=== PATIENT | female | born 1980 | race Caucasian/White ===

== ENCOUNTER → 2018-09-25 | Outpatient (CLI) | payer OTHER | END | disposition home or self-care (01) | LOC: LABWHC1 13:33 | PROVIDERS: ATTEND Internal Medicine Endocrinology, Diabetes & Metabolism | DX: E03.8 Other specified hypothyroidism (principal) | CPT/HCPCS: 36415; 84443; 86376 ==

== ENCOUNTER → 2019-02-14 | Outpatient (CLI) | payer OTHER | LOC: LABWHC1 13:55 | PROVIDERS: ATTEND Internal Medicine Endocrinology, Diabetes & Metabolism | DX: E03.8 Other specified hypothyroidism (principal) | CPT/HCPCS: 36415; 84443 ==

== ENCOUNTER → 2021-01-27 | Outpatient (CLI) | payer OTHER ==
--- NOTE | 2021-01-27 13:58 | CONS ---
CONSULTATION DATE OF SERVICE: 01/27/2021. This 40-year-old lady has been evaluated in [facility] Center for possible obstructive sleep apnea-hypopnea syndrome. HISTORY OF PRESENT ILLNESS/SLEEP-WAKE EVALUATION: Patient usual sleep schedule from 9 or 10 p.m. until 6:30 or 7 a.m. The patient does have problems with falling asleep now after she had COVID-19 in October of 2020. No TV in bedroom. She usually sleeps on the side position. She wakes up from sleep with nocturia. She has loud snoring. In the morning, patient wakes up tired has difficulties paying attention, worry about her sleep, has problem with memory, concentration, depression. [place] Sleepiness Scale is 5. In the morning, patient has headaches. Recently, she may have headaches for the whole days again after having COVID-19. PAST MEDICAL HISTORY: Positive for Kandi's thyroiditis, asthma of physical exercise. PAST SURGICAL HISTORY: Breast reduction in 2005, tubal ligation 2012. MEDICATIONS: Ambien 10 mg on as needed basis at bedtime, Celexa 10 mg once a day, Albuterol inhaler on p.r.n. basis, Tylenol as needed, thyroid support and immune support. FAMILY HISTORY: Positive for hypertension, heart problems, asthma, diabetes. REVIEW OF SYSTEMS: Loud snoring, awakenings from sleep, difficulties to initiate sleep, headaches. PHYSICAL EXAMINATION: GENERAL: lady without distress. VITAL SIGNS: BP 124/80, HR 84, RR 15, height 5 feet, weight 183.8, BMI 32.7, temperature 97.8, oxygen saturation at room air 97%. HEENT: PERRLA, EOMI. Oropharynx extremely low position of soft palate. Mallampati 4. NECK: 16 inches in circumference. LUNGS: Clear to percussion and to auscultation. Good air exchange. No wheezing or rhonchi. HEART: S1, S2 regular. No murmurs, gallops, or rubs. ABDOMEN: Soft and nontender. Bowel sounds are present. No organomegaly appreciated. EXTREMITIES: No clubbing or cyanosis. LIVESTOCK BROKER: Awake, alert, and oriented X3. Cranial nerves 2 to 7 intact. There is no fasciculation or atrophy. noted. No focal deficits observed. IMPRESSION: 1. Loud snoring, awakenings from sleep, extremely low position of soft palate, a wide neck, obesity, obstructive sleep apnea-hypopnea syndrome. 2. Mild obesity, body mass index 32.7. 3. Status post COVID-19 in October of 2020. 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 4. Difficulties to initiate sleep, insomnia. 5. History of Kandi's thyroiditis. 6. Asthma on physical exercise. 7. Status post tubal ligation. 8. Status post breast reduction. PLAN: 1. Polysomnography for evaluation of patient's breathing during sleep. 2. CPAP/BiPAP titration if sleep study confirms obstructive sleep apnea-hypopnea syndrome. 3. Preferable position during sleep on the side. 4. No driving if patient feels any sleepiness. 5. I will see patient for follow up visit to explain results of testing and following plan. Thank you very much for referring this patient for evaluation. Sincerely, Victor Hugo Pérez MD, PhD, FAASM Diplomat of [place] [employer] [place] [employer] [facility] [place] MMODL / IJN: [id number] /
== END | disposition home or self-care (01) ==
LOC: SLEEP 11:40
PROVIDERS: ATTEND Internal Medicine
DX: G47.33 Obstructive sleep apnea (adult) (pediatric) (principal); E66.9 Obesity, unspecified; Z68.32 Body mass index [BMI] 32.0-32.9, adult; Z86.16 Personal history of COVID-19; Z79.899 Other long term (current) drug therapy; Z86.39 Personal history of other endocrine, nutritional and metabolic disease; Z98.890 Other specified postprocedural states; Z98.51 Tubal ligation status
CPT/HCPCS: 99211

== ENCOUNTER 2021-03-11 15:36 | Emergency (ER) | payer OTHER ==
[2021-03-11] MEDS ORDERED: SODIUM CHLORIDE 0.9% 1,000 ML IV ONE (16:23)
[2021-03-11] MEDS ORDERED: MORPHINE SULFATE 4 MG/ML SYRINGE IVP STA (16:23)
--- NOTE | 2021-03-11 16:26 | ED ---
Abdominal Pain HPI - General Chief Complaint: Abdominal Pain Stated Complaint: ABD pain Time Seen by Provider: 03/11/21 16:14 Source: patient Mode of arrival: ambulatory Limitations: no limitations - History of Present Illness Initial Comments: Is a 40-year-old female with a history of tubal ligation and hypothyroidism who presents emergency department for left pelvic pain. She states the symptoms started 2 days ago and have gradually worsened. She states that they're constant nature however made worse with palpation and coughing, laughing, or bumps in the car. She states that she just recently got off of her menstrual cycle which she states was normal. She denies any vaginal discharge. No fevers or chills. She does admit to a little bit of nausea that she attributes to the pain however no vomiting. No constipation or diarrhea. No dysuria or hematuria. No flank pain. She states that she does have a history of ovarian cyst about 10 years ago. She went to [facility] who performed a urinalysis that showed a moderate to large amount of blood however no infection. Up her dependency test was not obtained time. - Related Data Home Medications Medication Instructions Recorded Confirmed Ascorbic Acid [Vitamin C] 500 mg PO DAILY 03/11/21 03/11/21 Cholecalciferol [Vitamin D3 (25 25 mcg PO DAILY 03/11/21 03/11/21 Mcg = 1000 Iu)] Levothyroxine Sodium [Synthroid] 75 mcg PO DAILY 03/11/21 03/11/21 Vitamin B Complex 1 cap PO DAILY 03/11/21 03/11/21 Zolpidem [Ambien] 10 mg PO HS PRN 03/11/21 03/11/21 Previous Rx's Medication Instructions Recorded Amoxicillin/Potassium Clav 1 tab PO Q12HR 1 Days #10 tab 03/11/21 [Augmentin 875-125 Tablet] Allergies Allergy/AdvReac Type Severity Reaction Status Date / Time No Known Allergies Allergy Verified 03/11/21 17:45 Review of Systems ROS Statement: Those systems with pertinent positive or pertinent negative responses have been documented in the HPI. ROS Other: All systems not noted in ROS Statement are negative. Past Medical History Past Medical History: No Reported History History of Any Multi-Drug Resistant Organisms: None Reported Past Surgical History: Tubal Ligation Additional Past Surgical History / Comment(s): breast augmentation, tubal ligation Smoking Status: Current some day smoker Past Alcohol Use History: Occasional Past Drug Use History: None Reported General Exam - General Exam Comments Initial Comments: Constitutional: Awake alert appears uncomfortable Head: Normocephalic atraumatic Eyes: no conjunctival injection No scleral icterus EOMI Neck: No JVD Supple Heart: Regular rate rhythm normal S1-S2 no murmurs Lungs: Clear to auscultation bilaterally No wheezing No rales Abdomen: Soft nondistended is tenderness to the left pelvic region with rebound and mild guarding Extremities: Non edematous DP pulses intact Radial pulses intact Neuro: A&Ox3 No focal neurologic deficits Psych: Appropriate mood and affect Limitations: no limitations Course Vital Signs 03/11/21 03/11/21 03/11/21 15:52 17:00 19:46 Temperature 98.2 F 99.2 F Pulse Rate 90 84 85 Respiratory 16 18 16 Rate Blood Pressure 127/82 112/76 124/84 O2 Sat by Pulse 100 99 98 Oximetry Medical Decision Making - Medical Decision Making Is a 40-year-old female presents emergency department for left lower quadrant abdominal pain. Initially this seemed to be more pelvic in origin however ultrasound of pelvis did not reveal any acute abdomen. Computed tomography scan did reveal what appears to be uncomplicated diverticulitis. The patient's pain was well managed in the emergency department with medications. Blood work was unremarkable. The patient was started on Augmentin to take for the next 5 days. Told to return if she has any worsening or changing symptoms. All questions answered. - Lab Data Result diagrams: 03/11/21 17:00 03/11/21 17:00 Lab Results 03/11/21 03/11/21 03/11/21 Range/Units 17:00 17:00 17:00 WBC 12.0 H (3.8-10.6) k/uL RBC 4.38 (3.80-5.40) m/uL Hgb 13.6 (11.4-16.0) gm/dL Hct 40.2 (34.0-46.0) % MCV 91.8 (80.0-100.0) fL MCH 30.9 (25.0-35.0) pg MCHC 33.7 (31.0-37.0) g/dL RDW 12.6 (11.5-15.5) % Plt Count 266 (150-450) k/uL MPV 7.0 Neutrophils % 78 % Lymphocytes % 15 % Monocytes % 5 % Eosinophils % 1 % Basophils % 0 % Neutrophils # 9.3 H (1.3-7.7) k/uL Lymphocytes # 1.8 (1.0-4.8) k/uL Monocytes # 0.5 (0-1.0) k/uL Eosinophils # 0.1 (0-0.7) k/uL Basophils # 0.0 (0-0.2) k/uL Sodium (137-145) mmol/L Potassium (3.5-5.1) mmol/L Chloride (98-107) mmol/L Carbon Dioxide (22-30) mmol/L Anion Gap mmol/L BUN (7-17) mg/dL Creatinine (0.52-1.04) mg/dL Est GFR (CKD-EPI)AfAm (>60 ml/min/1.73 sqM) Est GFR (CKD-EPI)NonAf (>60 ml/min/1.73 sqM) Glucose (74-99) mg/dL Calcium (8.4-10.2) mg/dL Total Bilirubin (0.2-1.3) mg/dL AST (14-36) U/L ALT (4-34) U/L Alkaline Phosphatase (38-126) U/L Total Protein (6.3-8.2) g/dL Albumin (3.5-5.0) g/dL Urine Color Light Yellow Urine Appearance Cloudy H (Clear) Urine pH 5.0 (5.0-8.0) Ur Specific [place] 1.008 (1.001-1.035) Urine Protein Negative (Negative) Urine Glucose (UA) Negative (Negative) Urine Ketones Trace H (Negative) Urine Blood Small H (Negative) Urine Nitrite Negative (Negative) Urine Bilirubin Negative (Negative) Urine Urobilinogen <2.0 (<2.0) mg/dL Ur Leukocyte Esterase Negative (Negative) Urine RBC 1 (0-5) /hpf Urine WBC 2 (0-5) /hpf Ur Squamous Epith Cells 7 H (0-4) /hpf Amorphous Sediment Occasional H (None) /hpf Urine Bacteria Rare H (None) /hpf Urine Mucus Rare H (None) /hpf Urine HCG, Qual Not Detected (Not Detectd) 03/11/21 Range/Units 17:00 WBC (3.8-10.6) k/uL RBC (3.80-5.40) m/uL Hgb (11.4-16.0) gm/dL Hct (34.0-46.0) % MCV (80.0-100.0) fL MCH (25.0-35.0) pg MCHC (31.0-37.0) g/dL RDW (11.5-15.5) % Plt Count (150-450) k/uL MPV Neutrophils % % Lymphocytes % % Monocytes % % Eosinophils % % Basophils % % Neutrophils # (1.3-7.7) k/uL Lymphocytes # (1.0-4.8) k/uL Monocytes # (0-1.0) k/uL Eosinophils # (0-0.7) k/uL Basophils # (0-0.2) k/uL Sodium 136 L (137-145) mmol/L Potassium 4.0 (3.5-5.1) mmol/L Chloride 105 (98-107) mmol/L Carbon Dioxide 21 L (22-30) mmol/L Anion Gap 10 mmol/L BUN 14 (7-17) mg/dL Creatinine 1.01 (0.52-1.04) mg/dL Est GFR (CKD-EPI)AfAm 81 (>60 ml/min/1.73 sqM) Est GFR (CKD-EPI)NonAf 70 (>60 ml/min/1.73 sqM) Glucose 91 (74-99) mg/dL Calcium 9.5 (8.4-10.2) mg/dL Total Bilirubin 0.9 (0.2-1.3) mg/dL AST 21 (14-36) U/L ALT 15 (4-34) U/L Alkaline Phosphatase 67 (38-126) U/L Total Protein 7.5 (6.3-8.2) g/dL Albumin 4.5 (3.5-5.0) g/dL Urine Color Urine Appearance (Clear) Urine pH (5.0-8.0) Ur Specific [place] (1.001-1.035) Urine Protein (Negative) Urine Glucose (UA) (Negative) Urine Ketones (Negative) Urine Blood (Negative) Urine Nitrite (Negative) Urine Bilirubin (Negative) Urine Urobilinogen (<2.0) mg/dL Ur Leukocyte Esterase (Negative) Urine RBC (0-5) /hpf Urine WBC (0-5) /hpf Ur Squamous Epith Cells (0-4) /hpf Amorphous Sediment (None) /hpf Urine Bacteria (None) /hpf Urine Mucus (None) /hpf Urine HCG, Qual (Not Detectd) Disposition Clinical Impression: Diverticulitis Disposition: HOME SELF-CARE Condition: Stable Instructions (If sedation given, give patient instructions): Diverticulitis (ED) Prescriptions: Amoxicillin/Potassium Clav [Augmentin 875-125 Tablet] 1 tab PO Q12HR 1 Days #10 tab Is patient prescribed a controlled substance at d/c from ED?: No Referrals: Sarah Harp MD [Primary Care Provider] - 1-2 days
[2021-03-11 17:24] LABS: Albumin 4.5 g/dL (3.5-5.0); Calcium 9.5 mg/dL (8.4-10.2); Total Bilirubin 0.9 mg/dL (0.2-1.3); Total Protein 7.5 g/dL (6.3-8.2)
[2021-03-11 17:27] LABS: Basophils % (A) 0 %; Eosinophils # (A) 0.1 k/uL (0-0.7); Eosinophils % (A) 1 %; HCT 40.2 % (34.0-46.0); HGB 13.6 gm/dL (11.4-16.0); Lymphocytes # (A) 1.8 k/uL (1.0-4.8); Lymphocytes % (A) 15 %; MCH 30.9 pg (25.0-35.0); MCHC 33.7 g/dL (31.0-37.0); MCV 91.8 fL (80.0-100.0); Monocytes # (A) 0.5 k/uL (0-1.0); Monocytes % (A) 5 %; Neutrophils # (A) 9.3 k/uL (1.3-7.7); Neutrophils % (A) 78 %; Platelet Count 266 k/uL (150-450); RBC 4.38 m/uL (3.80-5.40); RDW 12.6 % (11.5-15.5)
[2021-03-11 17:29] LABS: Amorphous Sediment,Urine Occasional /hpf; Appearance,Urine Cloudy (Clear); Bacteria,Urine Rare /hpf; Bilirubin,Urine Negative (Negative); Blood,Urine Small (Negative); Color,Urine Light Yellow; Glucose,Urine (UA) Negative (Negative); Ketones,Urine Trace (Negative); Leukocyte Esterase,Urine Negative (Negative); Mucus,Urine Rare /hpf; Nitrite,Urine Negative (Negative); Protein,Urine Negative (Negative); RBC,Urine 1 /hpf (0-5); Specific Gravity,Urine 1.008 (1.001-1.035); Squamous Epithelial Cell,Urine 7 /hpf (0-4); Urobilinogen,Urine <2.0 mg/dL (<2.0); WBC,Urine 2 /hpf (0-5)
--- NOTE | 2021-03-11 18:47 | US ---
EXAMINATION TYPE: US transvaginal DATE OF EXAM: 03/11/2021 COMPARISON: NONE CLINICAL HISTORY: L pelvic pain x 3 days. Hx tubal ligation, 1 miscarriage. A1. TECHNIQUE: Transvaginal (TV). Date of LMP: 03/07/2021 EXAM MEASUREMENTS: Uterus: 10.1 x 6.2 x 6.2 cm Endometrial Stripe: 0.42 cm Right Ovary: 3.6 x 2.4 x 2.2 cm Left Ovary: 3.7 x 2.3 x 2.8 cm 1. Uterus: Anteverted. Measures upper limits of normal. Measurement slightly limited. Heterogeneou s area of mixed echogenicity seen posteriorly measuring approximately 3.9 x 3.4 x 3.0 cm, most consis tent with myometrial leiomyoma. 2. Endometrium: Appears to be wnl. 3. Right Ovary: Positioned posterior to the uterus. Anechoic areas seen, largest measures: 1.2 x 1.2 x 1.0 cm. 4. Left Ovary: Limited visibility. Anechoic area seen: 1.2 x 1.5 x 1.2 cm. Spectral, color and waveform doppler imaging shows arterial and venous flow within the ovaries. 5. Bilateral Adnexa: Appear to be wnl. 6. Posterior cul-de-sac: Appears to be wnl. IMPRESSION: No acute process.
--- NOTE | 2021-03-11 19:46 | CT ---
EXAMINATION TYPE: CT abdomen pelvis w con DATE OF EXAM: 03/11/2021 COMPARISON: Ultrasound transvaginal 03/11/2021 HISTORY: Left lower quadrant abdominal pain. CT DLP: 975.7 mGycm Automated exposure control for dose reduction was used. TECHNIQUE: Helical acquisition of images was performed from the lung bases through the pelvis. CONTRAST: Performed without Oral Contrast and with IV Contrast, patient injected with 100ml mL of Isovue 300. FINDINGS: LUNG BASES: No acute findings. LIVER/GB: No significant abnormality is appreciated. PANCREAS: No significant abnormality is seen. SPLEEN: No significant abnormality is seen. ADRENALS: No significant abnormality is seen. KIDNEYS: No significant abnormality is seen. PERITONEAL CAVITY: No pneumoperitoneum or peritoneal fluid. RETROPERITONEAL ADENOPATHY: None visualized REPRODUCTIVE ORGANS: No significant abnormality is seen URINARY BLADDER: No significant abnormality is seen. PELVIC ADENOPATHY: None visualized. OSSEOUS STRUCTURES: No significant abnormality is seen. BOWEL: There is moderate marked circumferential inflammatory change at the junction of the descendin g colon and sigmoid, centered around axial image 68/102. No associated pneumatosis, extraperitoneal g as bubbles, or pneumoperitoneum. On axial image 68 is evidence of a 1 cm inflamed posterior diverticu lum and, so, the CT findings are in keeping with moderate-marked diverticulitis. Differential diagnos is includes inflammatory/infectious colitis, but the focality of the image 68 findings suggest the di agnosis of diverticulitis. Would suggest eventual follow-up colonoscopy to ensure normal underlying m ucosa. OTHER: No acute vascular findings. IMPRESSION: PROXIMAL SIGMOID DIVERTICULITIS, MODERATE-MARKED IN DEGREE.
[2021-03-11 19:48] VITALS: BP 124/84; PULSE 85; RESP 16; TEMP 99.2
== END 2021-03-11 20:00 | disposition home or self-care (01) ==
LOC: EC 15:36
DX: K57.32 Diverticulitis of large intestine without perforation or abscess without bleeding (principal); E03.9 Hypothyroidism, unspecified; F17.200 Nicotine dependence, unspecified, uncomplicated; Z98.51 Tubal ligation status
CPT/HCPCS: 36415; 80053; 85025; 81001; 81025; 93975; 76830; 74177; 99284; 96374; J2270; Q9967

== ENCOUNTER → 2022-05-26 | Outpatient (CLI) | payer BC ==
--- NOTE | 2022-05-26 14:54 | P.PN ---
Subjective DATE: 05/26/2022 41-year-old lady has been followed in the sleep center for treatment and evaluation for possible obstructive sleep apnea hypopnea syndrome. I saw patient in January 2021 and at that time sleep study has been ordered but insurance did not approve sleep test. Patient continued to have significant problems with her sleep including cloud snoring, multiple awakenings from sleep, significant sleepiness during the day with [place] Sleepiness Scale 19. Positive history of 2 episodes of COVID 19 infection, last episode in 2021. Medications: Metformin 1000 mg once a day, Flexeril 10 mg as needed, levothyroxine PHYSICAL EXAMINATION: GENERAL: A pleasant patient without any distress. VITAL SIGNS: BP 125/81 , HR 72 , RR 12 , weight 178.2 pounds, height 5 foot 3 inches, body mass index 31.5, temperature 97.3, oxygen saturation at room air 99% . HEENT: PERRLA, EOMI. Evaluation of oropharynx showed tongue protrudes midline, low position of soft palate Mallampati 4. NECK: Supple. No JVD. Thyroid is not palpable. 16 inches in circumference. LUNGS: Clear to percussion and to auscultation. Good air exchange. No wheezing or rhonchi. HEART: S1, S2 regular. No murmurs, gallops or rubs. ABDOMEN: Soft and nontender. Bowel sounds are present. No organomegaly appreciated. EXTREMITIES: No clubbing or cyanosis. PORTAL ADMINISTRATOR: Awake, alert, and oriented x3. Cranial nerves 2 to 7 intact. There is no fasciculation or atrophy noted. No focal deficits observed. ASSESSMENT: 1. Loud snoring, awakenings from sleep, extremely low position of soft palate Mallampati 4, white neck 16 inches in circumference, significant sleepiness with [place] Sleepiness Scale 19. Obstructive sleep apnea hypopnea syndrome. 2. Mild obesity body mass index 31.5. 3 status post COVID 192. 4. Prediabetes . 5 [].history of Kandi thyroiditis 6. Asthma physical exercise. 7. Status post tubal ligation. 8. Status post breast reduction. PLAN: 1. Polysomnography for evaluation of patient's breathing during sleep. 2. CPAP/BiPAP titration if sleep study confirms obstructive sleep apnea- hypopnea syndrome. 3. Preferable position during sleep on the side. 4. No driving if patient feels any sleepiness. Patient is aware of civil and criminal liability for unsafe driving. 5. Sleep hygiene with regular sleep time for at least 7.5-8 hours. 6. Watching weight. Thank you very much for referring this patient for consultation. Sincerely, Victor Hugo Pérez MD, PhD, FAASM. Diplomat of [place] [employer], Sleep Medicine Board by [place] [employer] [place] [employer] Specialist of [facility] [place]
== END ==
LOC: SLEEP 14:17
PROVIDERS: ATTEND Internal Medicine
DX: G47.33 Obstructive sleep apnea (adult) (pediatric) (principal); E66.9 Obesity, unspecified; R73.03 Prediabetes; Z68.31 Body mass index [BMI] 31.0-31.9, adult; Z86.16 Personal history of COVID-19; Z86.39 Personal history of other endocrine, nutritional and metabolic disease; J45.909 Unspecified asthma, uncomplicated; Z98.51 Tubal ligation status; Z98.890 Other specified postprocedural states

== ENCOUNTER → 2022-07-26 | Outpatient (CLI) | payer BC ==
--- NOTE | 2022-07-26 13:22 | US ---
EXAMINATION TYPE: US venous doppler duplex LE LT DATE OF EXAM: 07/26/2022 1:01 PM COMPARISON: NONE CLINICAL HISTORY: L leg pain M79.662. Pt states left leg heaviness SIDE PERFORMED: Left TECHNIQUE: The lower extremity deep venous system is examined utilizing real time linear array sonog madison with graded compression, doppler sonography and color-flow sonography. VESSELS IMAGED: Common Femoral Vein Deep Femoral Vein Greater Saphenous Vein * Femoral Vein Popliteal Vein Small Saphenous Vein * Proximal Calf Veins (* superficial vessels) Grayscale, color doppler, spectral doppler imaging performed of the deep veins of the lower extremiti es. There is normal flow, compressibility, vascular waveforms. Left Leg: Negative for DVT Results called to Dr. Turpin- at time of exam IMPRESSION: No evident deep venous thrombosis within the left lower extremity from the level of the knee centrally
== END | disposition home or self-care (01) ==
LOC: RADUSWWP 12:41
PROVIDERS: ATTEND Family Medicine
DX: M79.662 Pain in left lower leg (principal)